=== PATIENT | female | born 1955 | race Two or more races ===

== ENCOUNTER 2016-09-12 10:28 | Emergency (ER) | payer MEDICAID ==
--- NOTE | 2016-09-12 10:48 | ED Physician Chart ---
Chief Complaint/HPI - Patient Information Date Seen:: 09/12/16 Time Seen:: 10:32 Chief Complaint:: skin infection History of Present Illness:: 60-year-old female history of hypercholesterolemia, complains of acute, worsening, constant, moderate, skin infection on the right buttocks that started 2 days ago. Has associated pain when sitting on the area of infection. Denies fevers, palpitations, numbness or tingling, headache, chest pain, palpitations, nausea, vomiting, diarrhea, gross hematuria, dysuria. Historian:: Patient Review:: Nurse's Note Reviewed Review of Systems - Review of Systems Other: Complete system review otherwise unremarkable except as noted in HPI. Past Medical History - Past Medical History Past Medical History: Dyslipidemia Family History: None Social History: Non Smoker, No Alcohol, No Drug Use, Employed Surgical History: None Psychiatricy History: None Medication: Reviewed Family Medical History - Family Member Mother History Unknown: Yes Ethnicity: Physical Exam - Physical Examination Other:: INITIAL VITAL SIGNS: Reviewed by me GENERAL: Alert and interactive. No acute distress HEAD: Head is normocephalic and atraumatic EYES: EOMI. . No scleral icterus. No conjunctival injection ENT: Moist mucous membranes. NECK: Supple. No masses. Full range of motion RESPIRATORY: No tachypnea. Clear breath sounds bilaterally. No wheezing, rales, or rhonchi CV: Regular rate and rhythm. No murmurs, rubs, or gallops ABDOMEN: Soft, non-distended, non-tender. No guarding. No rebound. No masses. EXTREMITIES: No deformity. No cyanosis. No edema. SKIN: Right buttocks has area of induration and erythema approximately 6 x 3 cm. Near the center of the gluteal crease. NEUROLOGIC: Alert and oriented. Face is symmetric. Speech is normal. Moves all extremities equally. Motor and sensory distally intact. Assessment - Procedures Procedures:: Abscess Incision and Drainage with irrigation by me: Location: Right buttock Anesthesia: Local 1% Lidocaine Technique: Irrigated. Disrupted loculations w/ instrumentation Packing: Vessel loop Complications: Neurovascularly intact post procedure 48 hour wound check. Scar minimization instructions given. ED Septic Shock - . Is Septic Shock (SBP<90, OR Lactate>4 mmol\L) present?: No Reassessment (Disposition) - Reassessment Reassessment:: The patient's blood pressure was elevated (>120/80) but appears stable without evidence of hypertensive emergency or urgency. The patient was counseled about the risks hypertension urged to pursue outpatient monitoring and therapy within a week with her primary care physician. Patient had abscess on the right buttock. This was incised and drained. We also placed a vessel loop through the abscess. Provided antibiotics for surrounding colitis. Follow-up PCP 1-2 days for wound check. Return to ER precautions were given. Patient understands and agrees the plan. Reassessment Condition:: Improved - Diagnosis Diagnosis:: Abscess right buttock, acute, first visit Cellulitis right buttock, acute, first visit Elevated blood pressure without the diagnosis of hypertension - Aftercare/Follow up Instructions Aftercare/Follow-Up Instructions:: Counseled pt regarding lab results/diagnosis & need follow up, Refer to Discharge Instructions Medication Prescribed:: Cephalexin Bactrim DS - Patient Disposition Discharge/Transfer:: Home Time:: 11:10 Condition at Disposition:: Improved ED Discharge Plan - Patient Disposition Admit/Discharge/Transfer: PT DISCHARGED HOME Condition at Disposition: Improved Instructions: Abscess, Cellulitis
== END 2016-09-12 12:00 | disposition home or self-care (01) ==
LOC: ER 10:28
DX: L02.31 Cutaneous abscess of buttock (principal); L03.317 Cellulitis of buttock; R03.0 Elevated blood-pressure reading, without diagnosis of hypertension; E78.5 Hyperlipidemia, unspecified
CPT/HCPCS: 10060; J2001; Z7502